=== PATIENT | male | born 1955 | race Caucasian/White ===

== ENCOUNTER → 2019-11-11 | Outpatient (CLI) | payer BC ==
[~2019-11-11] MED LIST: CONTRAST GIVEN. MC PRN; IOHEXOL 240 MG/ML 50ML VIAL. IV ONE; IOHEXOL 240 MG/ML 50ML VIAL. PO ONE; IOHEXOL 300 MG/ML 100ML VIAL. IV ONE; OMEP20CA16 PO
--- NOTE | 2019-11-11 12:03 | KCIC ---
EXAM: CT Abdomen and Pelvis with IV contrast INDICATION: Left lower quadrant pain. History of colon resection in 2000 for abscess. TECHNIQUE: Multi-detector row CT images were acquired from the lung bases through the abdomen and pelvis with the use of IV contrast. Sagittal and coronal images were acquired from the transaxial data. All CT scans performed at this facility utilize dose optimization techniques as appropriate to the exam, including the following: Automated exposure control and adjustment of the mA and/or KV according to patient size (this includes techniques or standardized protocols for targeted exams where dose is indication/reason for exam). IV CONTRAST: Administered ORAL CONTRAST: Administered COMPARISON: 08/05/[address] with oral and IV contrast FINDINGS: LOWER CHEST: Unremarkable LIVER: Numerous cysts of varying sizes are present in the liver, largest measuring 5.8 cm in hepatic segment 3. BILIARY SYSTEM: There is layering sludge in the gallbladder. No gallbladder wall thickening or pericholecystic fluid is identified on CT. The extrahepatic bile ducts are dilated up to 15 mm in diameter. PANCREAS: Unremarkable SPLEEN: Unremarkable ADRENALS: Unremarkable KIDNEYS & URETERS: Unremarkable BLADDER: Unremarkable REPRODUCTIVE ORGANS: Prostate measures 5.3 cm transverse diameter. Low density in the bilateral partially visualized scrotal sacs are suggestive of bilateral hydroceles.. GASTROINTESTINAL: Postsurgical changes from previous partial sigmoid colonic resection are evident. There are extensive colonic diverticuli. The distal descending colon best illustrated on the coronal reformatted images show mild wall thickening and pericolonic stranding (image 24 of coronal series 4) The appendix is normal. MESENTERY/PERITONEUM/RETROPERITONEUM: Unremarkable VASCULAR: Tortuous and calcified abdominal aorta. No aneurysm. LYMPH NODES: No adenopathy OSSEOUS & SOFT TISSUES: Unremarkable IMPRESSION: 1. Findings suspicious for acute diverticulitis involving the distal descending colon. No findings of abscess, bowel obstruction or bowel perforation. 2. There is extrahepatic biliary dilation in the setting of layering sludge or stones in the gallbladder. If choledocholithiasis is suspected, abdominal MRI with MRCP or ERCP could be considered in further evaluation. Electronically signed by: Agnes Coulter MD (11/11/2019 12:00 PM) [id number]
== END | disposition home or self-care (01) ==
LOC: KCIC CT 08:56
PROVIDERS: ATTEND Family Medicine
DX: K76.89 Other specified diseases of liver (principal); K83.8 Other specified diseases of biliary tract; I70.0 Atherosclerosis of aorta; Q25.46 Tortuous aortic arch; Z90.49 Acquired absence of other specified parts of digestive tract
CPT/HCPCS: 74177; 82565; Q9966; Q9967